=== PATIENT | female | born 1985 | race Caucasian/White ===

== ENCOUNTER 2018-12-08 16:58 | Day surgery (SDC) | payer BC ==
[2018-12-08 17:29] VITALS: BP 125/60; TEMP 99.3; BMI 40.1
[2018-12-08 18:19] LABS: Bilirubin Negative (Negative); Blood, Urine Negative (Negative); Clarity CLOUDY (Clear); Glucose, Urine (Dipstick) Negative (Negative); Leukocyte Negative (Negative); Nitrite Negative (Negative); Protein, Urine (Dipstick) Trace mg/dL (Neg-Trace); Specific Gravity, Urine 1.033 (1.002-1.036); Urobilinogen 0.2 mg/dL (0.2-1.0)
--- NOTE | 2018-12-09 08:49 | SS ---
DATE OF ADMISSION: 12/08/2018 DATE OF DISCHARGE: 12/08/2018 REGULAR PHYSICIAN: Errol Coon MD. EVALUATING PHYSICIAN: Sukhi White MD. CHIEF COMPLAINT: Back pain. HISTORY OF PRESENT ILLNESS: Ms. Curry is a 33-year-old, white, G2, P0, with an estimated date of confinement of 02/01/2019, who presents complaining of back pain over the last 24 hours. She denies rupture of membranes or vaginal bleeding. She went to [facility], where she reports she had a urinalysis that was negative, but they told her to come to Labor and Delivery to be checked. She reports active movement. Her care has been with Dr. Coon and has been without significant complications. PAST MEDICAL HISTORY: Includes obesity. PAST SURGICAL HISTORY: Includes gastric sleeve, complicated by dumping syndrome. CURRENT MEDICATIONS: 1. vitamins. 2. Zantac. ALLERGIES: NO KNOWN ALLERGIES. SOCIAL HISTORY: Denies tobacco, alcohol, or drug use. FAMILY HISTORY: Unremarkable. REVIEW OF SYSTEMS: Denies nausea, vomiting, fever, chills, rupture of membranes, or vaginal bleeding. PHYSICAL EXAMINATION: VITAL SIGNS: In triage tonight, her vital signs are stable and she is afebrile. GENERAL: She is pleasant and in no acute distress. ABDOMEN: Soft, nontender, and gravid. There is no guarding or rebound. PELVIC: Her cervix is long, closed, and uneffaced. heart rate tracing is stable. No significant contractions are seen. LABORATORY DATA: Urinalysis returned showing a specific gravity of 1.033 with positive ketones, but negative nitrites, negative leukocyte esterase, negative blood. ASSESSMENT: 1. A 32 and 1/7 week intrauterine . 2. No evidence of labor. 3. No evidence of urinary tract infection. PLAN: The findings have been discussed with the patient in detail. I have encouraged the patient to increase her p.o. intake as to avoid ketones in her urine. She was given complete precautions and was sent home in good condition. She states that she has an appointment with Dr. Coon next week in his office. Dr. Coon was notified prior to her discharge. Job ID: [id number]
== END 2018-12-08 18:47 | disposition home or self-care (01) ==
LOC: L&D/OP 16:58
PROVIDERS: ATTEND Obstetrics & Gynecology
DX: O99.89 Other specified diseases and conditions complicating pregnancy, childbirth and the puerperium (principal); M54.9 Dorsalgia, unspecified; Z79.899 Other long term (current) drug therapy; Z3A.32 32 weeks gestation of pregnancy
CPT/HCPCS: 81003; 99283

== ENCOUNTER 2019-01-28 21:45 | Inpatient (IN) | payer BC ==
[2019-01-28] MEDS ORDERED: Ibuprofen 800 MG TAB PO PRN (21:46)
[2019-01-28] MEDS ORDERED: HYDROcodone/Acetaminophen 5/325 mg Tablet PO PRN ×2 (21:46)
[2019-01-28] MEDS ORDERED: Promethazine HCl 25 MG/ML VIAL IM PRN (21:46)
[2019-01-28] MEDS ORDERED: Butorphanol Tartrate 1 MG/ML VIAL SLOW IVP PRN (21:46)
[2019-01-28] MEDS ORDERED: NS / Oxytocin 40 units/1000ml 1,000 ML IV PRN (21:46)
[2019-01-28] MEDS ORDERED: Misoprostol 200 MCG TAB PR PRN (21:46)
[2019-01-28] MEDS ORDERED: Ondansetron PF 4 MG/2 ML Vial IVP PRN (21:46)
[2019-01-28] MEDS ORDERED: Lidocaine 1% (PF) 30 ML VIAL SC PRN (21:46)
[2019-01-28] MEDS ORDERED: Diphenoxylate HCl/Atropine Tablet PO PRN ×2 (21:46)
[2019-01-28] MEDS ORDERED: Acetaminophen 500 MG TAB PO PRN (21:46)
[2019-01-28] MEDS ORDERED: Docusate 100 MG CAP PO PRN (21:46)
[2019-01-28] MEDS ORDERED: Zolpidem Tartrate 5 MG TAB PO PRN (21:46)
[2019-01-28] MEDS ORDERED: NS w/ Oxytocin 10 units 500 ML IV SCH (22:30)
[2019-01-28 22:43] VITALS: BMI 40.8
[2019-01-28] MEDS: Lactated Ringer's 1,000 ML IV SCH (22:47)
[2019-01-28] MEDS: Misoprostol 100 MCG TAB VAG SCH (22:47)
[2019-01-28 23:03] LABS: Hemoglobin 9.4 g/dL (12.0-16.0); Mean Corpuscular HGB CONC 32.4 g/dL (32.0-36.0); Mean Corpuscular Hemoglobin 26.3 pg (27.0-31.0); Mean Corpuscular Volume 81.3 fL (78.0-98.0); Mean Platelet Volume 9.2 fL (7.4-10.4); Platelet Count 248 thou/uL (130-400); RBC Distribution Width 13.6 % (11.5-14.5); Red Blood Cell (RBC) Count 3.59 mill/uL (4.20-5.40); White Blood Cell (WBC) Count 15.1 thou/uL (4.8-10.8)
[2019-01-28 23:41] LABS: Syphilis Antibody Nonreactive (Nonreactive); Syphilis Antibody Index 0.05 S/CO (<1.00 Non-Reactive)
[2019-01-29 00:13] LABS: HBSAg Index 0.31 S/CO (0-0.99); Hep B Surf Ag Non-Reactive S/CO (NonReactive)
[2019-01-29] MEDS ORDERED: Fentanyl 4 mcg/Bup 0.1% Cadd 100 ML ONE ×3 (07:16→20:29)
[2019-01-29] MEDS: Lactated Ringer's 1,000 ML IV SCH ×3 (07:22→19:40)
[2019-01-29] MEDS: Misoprostol 100 MCG TAB VAG SCH ×3 (07:32→14:52)
[2019-01-29] MEDS ORDERED: Ondansetron PF 4 MG/2 ML Vial IVP PRN (07:48)
[2019-01-29] MEDS ORDERED: Acetaminophen 325 MG TAB PO PRN (07:48)
[2019-01-29] MEDS ORDERED: diphenhydrAMINE 50 MG/ML VIAL IVP PRN (07:48)
[2019-01-29] MEDS ORDERED: ePHEDrine/0.9% NaCl/PF SYRINGE 50 mg/10 ml SLOW IVP PRN (07:48)
[2019-01-29] MEDS ORDERED: Lactated Ringer's 500 ML IV PRN (07:48)
[2019-01-29] MEDS ORDERED: Promethazine HCl 25 MG/ML VIAL IM PRN (07:48)
[2019-01-29] MEDS ORDERED: Eucerin (Mineral Oil/Petrolatum,White) 30 gm Jar TOP PRN (07:48)
[2019-01-29] MEDS ORDERED: Naloxone HCl 0.4 mg/ml Vial IVP PRN ×2 (07:48)
[2019-01-29] MEDS ORDERED: Communication Order-Pharmacy FS SCH (08:00)
[2019-01-29] MEDS ORDERED: Fentanyl 4 mcg/Bupivacaine 0.1% Cassette 100 ML EPIDURAL SCH (08:00)
[2019-01-29] MEDS ORDERED: Bicitra 30 ML UDCUP ONE (23:51)
[2019-01-30] MEDS ORDERED: MORPHINE 5 MG/10 ML PF VIAL ONE (00:03)
[2019-01-30] MEDS ORDERED: Oxytocin 10 UNITS/ML VIAL ONE (00:04)
[2019-01-30] MEDS ORDERED: Ondansetron PF 4 MG/2 ML Vial ONE (00:04)
[2019-01-30] MEDS ORDERED: Lidocaine 2% 10 ML INJ ONE (00:04)
[2019-01-30] MEDS ORDERED: Promethazine HCl 25 MG/ML VIAL IM PRN ×2 (00:42→06:05)
[2019-01-30] MEDS ORDERED: Ondansetron HCl/PF 4 MG/2 ML Vial IVP PRN (00:42)
[2019-01-30] MEDS ORDERED: Promethazine HCl 25 MG/ML VIAL SLOW IVP PRN (00:42)
[2019-01-30] MEDS ORDERED: Fentanyl 100 MCG/2 ML VIAL ONE ×3 (01:03→03:50)
[2019-01-30 01:08] LABS: pH (Cord, venous) 7.38 (7.32-7.43)
[2019-01-30] MEDS ORDERED: Meperidine HCl/PF 25 MG/ML VIAL IM PRN (02:12)
[2019-01-30] MEDS ORDERED: Acetaminophen 325 MG TAB PO PRN (02:12)
[2019-01-30] MEDS ORDERED: diphenhydrAMINE 25 MG CAP PO PRN (02:12)
[2019-01-30] MEDS ORDERED: Simethicone Chewable 80 MG TAB PO PRN (02:12)
[2019-01-30] MEDS ORDERED: HYDROcodone/Acetaminophen 5/325 mg Tablet PO PRN ×2 (02:12)
[2019-01-30] MEDS ORDERED: Bisacodyl 10 MG SUPP PR PRN (02:12)
[2019-01-30] MEDS ORDERED: Misoprostol 200 MCG TAB PR PRN (02:12)
[2019-01-30] MEDS ORDERED: Lanolin Ointment 7 GM TUBE TOP PRN (02:12)
[2019-01-30] MEDS ORDERED: Ondansetron PF 4 MG/2 ML Vial IVP PRN ×2 (02:12→06:05)
[2019-01-30] MEDS ORDERED: NS / Oxytocin 40 units/1000ml 1,000 ML IV SCH (02:15)
[2019-01-30] MEDS ORDERED: Lactated Ringer's 1,000 ML IV SCH (02:15)
[2019-01-30] MEDS ORDERED: Fentanyl 100 MCG/2 ML VIAL SLOW IVP SCH (04:00)
[2019-01-30] MEDS ORDERED: Naloxone HCl 0.4 mg/ml Vial IV PRN ×3 (06:05)
[2019-01-30] MEDS ORDERED: Hydrocerin (Eucerin) Cream 120 gm Jar TOP PRN (06:05)
[2019-01-30] MEDS ORDERED: NO PO,IM,IV OR SC NARCOTICS FOR 12HR EXCEPT BY ANESTHESIA PO SCH (06:05)
[2019-01-30] MEDS ORDERED: Promethazine HCl 25 MG SUPP PR PRN (06:05)
[2019-01-30] MEDS ORDERED: diphenhydrAMINE 50 MG/ML VIAL IVP PRN (06:05)
[2019-01-30] MEDS ORDERED: Ketorolac Tromethamine 30 MG/ML VIAL IVP PRN (06:05)
[2019-01-30] MEDS: Ibuprofen 800 MG TAB PO SCH ×3 (06:12→21:52)
[2019-01-30 07:36] LABS: Hemoglobin 8.8 g/dL (12.0-16.0); Mean Corpuscular HGB CONC 32.8 g/dL (32.0-36.0); Mean Corpuscular Volume 79.4 fL (78.0-98.0); Mean Platelet Volume 9.2 fL (7.4-10.4); Platelet Count 210 thou/uL (130-400); Red Blood Cell (RBC) Count 3.36 mill/uL (4.20-5.40); White Blood Cell (WBC) Count 28.5 thou/uL (4.8-10.8)
[2019-01-30] MEDS: Misoprostol 100 MCG TAB VAG SCH (08:12)
[2019-01-30] MEDS: Ferrous Sulfate 325 MG TAB PO SCH ×2 (08:17→18:55)
[2019-01-30] MEDS: Docusate Calcium (SURFAK) 240 MG CAP PO SCH ×2 (08:18→21:52)
[2019-01-30] MEDS: Prenatal Vitamin 1 TAB PO SCH (08:18)
[2019-01-30] MEDS ORDERED: Adacel (T-DAP) 0.5 ML SYRINGE IM ONE (09:00)
[2019-01-30] MEDS ORDERED: Bupivacaine 0.25% HCL 30 ML VIAL ONE (11:37)
[2019-01-30] MEDS: HYDROcodone/Acetaminophen 5/325 mg Tablet PO PRN (18:55)
[2019-01-31] MEDS: HYDROcodone/Acetaminophen 5/325 mg Tablet PO PRN ×3 (01:40→20:18)
[2019-01-31] MEDS: Ibuprofen 800 MG TAB PO SCH ×3 (04:38→21:56)
[2019-01-31] MEDS ORDERED: Calcium Carbonate 500 MG ChewTAB PO PRN (05:12)
[2019-01-31] MEDS: Ferrous Sulfate 325 MG TAB PO SCH ×2 (09:21→18:28)
[2019-01-31] MEDS: Prenatal Vitamin 1 TAB PO SCH (09:21)
[2019-01-31] MEDS: Docusate Calcium (SURFAK) 240 MG CAP PO SCH ×2 (09:21→21:56)
--- NOTE | 2019-01-31 16:19 | OP ---
DATE OF PROCEDURE: 01/30/2019 ATTENDING STAFF PHYSICIAN: Jacqui Coon MD RESIDENT SURGEON: Lilian Long DO PREOPERATIVE DIAGNOSES: 1. Term intrauterine at 39 and 4/7th weeks. 2. Non-reassuring heart rate tracing (persistent category II). 3. Arrest of descent dilatation. POSTOPERATIVE DIAGNOSES: 1. Term intrauterine at 39 and 4/7th weeks. 2. Non-reassuring heart rate tracing (persistent category II). 3. Arrest of descent and dilatation. 4. Cephalopelvic disproportion (CPD). PROCEDURE PERFORMED: Primary low transverse section. ANESTHESIA: Epidural catheterization. FINDINGS: 1. Arrest of descent and dilatation at 8+ cm dilation, complete effacement, zero station. 2. Persistent non-reassuring heart rate tracing; category II. 3. Vigorous male , 7 pounds 11 ounces, Apgars 8 and 9. 4. Normal uterus, tubes, and ovaries. 5. Cephalopelvic disproportion-prominent sacrum, narrow outlet, android pelvis. COMPLICATIONS: None. SPECIMENS REMOVED: Cord blood gas. BLOOD LOSS: Approximately 700 mL (QBL equals 620 mL). HISTORY AND INDICATIONS: Ms. Elise Curry is a very pleasant 33-year-old white female, 2, para 0-0-1-0, who is followed in my clinic for obstetric care. She presented to Labor and Delivery on the evening of 02/27/2019 for scheduled induction of labor at 39 and 3/7th weeks. She underwent cervical ripening with one dose of Cytotec 25 mcg vaginally. On the morning of 01/29/2019, she had progressed to 3 cm dilation, 50% effacement, and -2 station. Amniotomy was performed and clear fluid was noted. Pitocin induction was initiated. Throughout the day and evening, the patient progressed 8 to 9 cm dilation, complete effacement, and zero station. Beginning that evening, the fetus was noted to have repetitive decelerations, which were corrected using conservative manners including positioning and amnioinfusion. Early on the morning of 01/30/2019, the patient had experienced no appreciable exchange floor manager a 5-hour window with persistent category II tracing. A decision was made to proceed with primary delivery for the benefit of both mother and baby. The patient and her family were counseled at length. Surgical disclosures were signed and placed in the chart. Questions were answered to their satisfaction. DESCRIPTION OF PROCEDURE: After consent and counseling, Elise was taken to the operating room and adequate level of anesthesia was obtained via the existing epidural catheterization. The patient was prepped and draped in the usual sterile fashion for abdominal surgery. A Spence had previously been placed in the bladder, which was noted to be draining clear urine. Attention was then turned to performing the primary low-transverse section. A Pfannenstiel incision was made and carried sharply to the fascia, which was also sharply incised. The midline was identified and the rectus muscles were retracted laterally. The abdominal peritoneal cavity was entered with usual safeguard carried out. A retractor was placed and a bladder flap was created on the vesicouterine peritoneum. A bladder blade was then placed. A low-transverse incision was made on the well-developed lower uterine segment. Upon entering the amniotic sac, a moderate amount of clear amniotic fluid and amnioinfusion was noted. The infant was noted to be in vertex presentation and the occiput transverse position still high in the pelvis. The vertex was carefully delivered in an atraumatic fashion and the baby was suctioned on the abdomen. A significant amount of caput molding was noted. Nuchal cord x1 was reduced. Shoulders and body were then also delivered in an atraumatic fashion. The cord was doubly clamped and cut, and the infant was handed to the neonatology team in attendance for the delivery. The infant was a vigorous viable male, weighing 7 pounds 11 ounces with Apgars of 8 and 9 obtained at one and five minutes respectively. Cord blood gas was obtained. The placenta was manually removed from the uterus. Uterus was exteriorized and good tone was noted with vigorous massage. The uterine cavity was cleared of clot and fluid. The low-transverse incision was closed with a running locking ligature of #1 chromic. A second imbricating layer was placed to facilitate strength and hemostasis. Multiple [id number] ligatures of 0 Vicryl suture were placed for additional strength. The vesicouterine peritoneum was reapproximated to the lower segment with running ligature of 2-0 Monocryl suture. Good hemostasis was noted. The posterior cul-de-sac and gutters were cleared of clot and fluid. The pelvis was carefully inspected for indications for the high transverse arrest. The sacrum was noted to be extremely prominent with an android pelvis noted. The outlet was somewhat narrow preoperatively. The patient was given a diagnosis of cephalopelvic disproportion with arrest of descent and dilatation. Seprafilm was then applied to the low-transverse incision for adhesion prevention. Seprafilm was applied to the low-transverse incision and to the anterior aspect of the uterus. The uterus was returned to the abdomen and good tone and hemostasis was once again appreciated. Lap, sponge, and needle counts were correct. The peritoneum was then closed with a running ligature of 2-0 Vicryl suture for additional adhesion prevention. The rectus muscles were reapproximated in the midline. The fascia was closed with two ligatures of 2-0 Vicryl suture, which were tied in the midline. Good fascial integrity appreciated. The incision was irrigated with copious amount of warm normal saline. Subcutaneous tissues closed with multiple layers of 2-0 plain suture. The skin was closed with a subcuticular stitch of 4-0 Monocryl and then dressed with Dermabond. Lap, sponge, and needle counts were correct x3. Estimated blood loss during the surgical procedure was approximately 700 mL. QBL was determined postoperatively at 620 mL. A pressure dressing and ice packs were subsequently placed. The patient was taken to the recovery room in good condition. Immediately following surgery, the patient and family were made aware of the surgical procedure and operative findings. We discussed in detail the indications for delivery and the intraoperative findings including cephalopelvic disproportion and the implications for future deliveries. Questions were answered to the patient and family's satisfaction. Baby was returned to the mother in the recovery room and was doing well. The patient and her were very appreciative of the care rendered here this morning at [facility]. Job ID: [id number]
[2019-02-01] MEDS: Ibuprofen 800 MG TAB PO SCH (05:41)
[2019-02-01 08:24] VITALS: BP 125/61; TEMP 98.8
[2019-02-01] MEDS: Ferrous Sulfate 325 MG TAB PO SCH (09:28)
[2019-02-01] MEDS: Prenatal Vitamin 1 TAB PO SCH (09:28)
[2019-02-01] MEDS: Docusate Calcium (SURFAK) 240 MG CAP PO SCH (09:28)
[2019-02-01] MEDS: HYDROcodone/Acetaminophen 5/325 mg Tablet PO PRN (11:01)
== END 2019-02-01 12:30 | disposition home or self-care (01) | DRG 788 ==
LOC: L&D 21:45 → 3SW 01-30 05:06
PROVIDERS: ADMIT Obstetrics & Gynecology; ATTEND Obstetrics & Gynecology
PROC: 3E0P7VZ Introduction of Hormone into Female Reproductive, Via Natural or Artificial Opening (ICD-10-PCS; 2019-01-28)
PROC: 3E033VJ Introduction of Other Hormone into Peripheral Vein, Percutaneous Approach (ICD-10-PCS; 2019-01-29)
PROC: 10907ZC Drainage of Amniotic Fluid, Therapeutic from Products of Conception, Via Natural or Artificial Opening (ICD-10-PCS; 2019-01-29)
PROC: 10D00Z1 Extraction of Products of Conception, Low, Open Approach (ICD-10-PCS; principal; 2019-01-30)
DX: O33.9 Maternal care for disproportion, unspecified (principal); O61.0 Failed medical induction of labor; Z3A.39 39 weeks gestation of pregnancy; Z37.0 Single live birth; O76 Abnormality in fetal heart rate and rhythm complicating labor and delivery
CPT/HCPCS: 36415; 51702; 82805; 85027; 86780; 86850; 86900; 86901; 87340; J0595; J0690; J1885; J2001; J2270; J2405; J2590; J3010; S0020